=== PATIENT | male | born 1985 | race Caucasian/White ===

== ENCOUNTER 2022-09-01 23:04 | Emergency (ER) | payer SELFPAY ==
[~2022-09-01] VITALS: Ht 185.4 cm; Wt 80.0 kg
[2022-09-01 23:11] VITALS: O2SAT 99
[2022-09-02] MEDS ORDERED: LORAZEPAM 0.5MG TABLET PO ONE (00:45)
[2022-09-02] MEDS ORDERED: ALPR-341 MT (01:56)
[2022-09-02 02:00] VITALS: BP 108/61; PULSE 60; RESP 13; TEMP 98.2
== END 2022-09-02 02:10 | disposition home or self-care (01) ==
LOC: ER 23:04
DX: F41.9 Anxiety disorder, unspecified (principal); R07.89 Other chest pain
CPT/HCPCS: 93005; 99283